=== PATIENT | male | born 1995 | race African-American/Black ===

== ENCOUNTER 2017-04-24 01:20 | Inpatient (IN) | payer MEDICAID, OTHER ==
[~2017-04-24] VITALS: Ht 193 cm; Wt 102.1 kg
[2017-04-24] MEDS ORDERED: LITH300T3 PO (01:25)
[2017-04-24] MEDS ORDERED: TRAZ-147 PO (01:25)
[2017-04-24 02:06] LABS: BASOPHILS % (AUTO) 0.7 % (0.0-2.0); EOSINOPHILS % (AUTO) 4.2 % (1.0-6.0); HEMOGLOBIN 15.5 g/dL (13.5-17.5); LYMPHOCYTES # (AUTO) 2.8 K/uL (1.0-4.8); LYMPHOCYTES % (AUTO) 43.1 % (22.0-44.0); MEAN CORPUSCULAR HEMOGLOBIN 30.7 pg (26.0-34.0); MEAN CORPUSCULAR HGB CONC 33.7 G/dL (31.0-37.0); MEAN CORPUSCULAR VOLUME 91 fL (80-100); MONOCYTES # (AUTO) 0.5 K/uL (0.1-1.0); MONOCYTES % (AUTO) 8.1 % (2.0-9.0); NEUTROPHILS # (AUTO) 2.9 K/uL (1.8-7.7); NEUTROPHILS % (AUTO) 43.9 % (40.0-70.0); PLATELET COUNT (AUTO) 247 K/uL (150-450); RED BLOOD CELL COUNT(AUTO) 5.06 MIL/uL (4.50-5.90); RED CELL DISTRIBUTION WIDTH 13.6 % (11.5-14.5); WHITE BLOOD COUNT (AUTO) 6.6 K/uL (4.5-11.0)
[2017-04-24 02:11] LABS: ANION GAP 8 mmol/L (8-16); CALCIUM, TOTAL 8.9 mg/dL (8.8-10.5); CARBON DIOXIDE 29 mmol/L (22-29); CHLORIDE 103 mmol/L (98-107); CREATININE 1.36 mg/dL (0.60-1.30); GLOMERULAR FILTR. RATE CALC > 60 mL/min (>60); POTASSIUM 3.9 mmol/L (3.5-5.1); SODIUM SERUM 140 mmol/L (136-145); UREA NITROGEN, BLOOD 15 mg/dL (7-18)
[2017-04-24 02:24] LABS: ALANINE AMINOTRANSFERASE 30 U/L (12-78); ALBUMIN 4.2 g/dL (3.4-5.0); ASPARTATE AMINOTRANSFERASE 37 U/L (15-37); BILIRUBIN,TOTAL 0.2 mg/dL (0.1-1.0)
[2017-04-24] MEDS ORDERED: DiphenhydrAMINE HCL 50 MG/ML VIAL IM ONE (02:45)
[2017-04-24] MEDS ORDERED: HALOPERIDOL LACTATE 5 MG/ML VIAL IM ONE (02:45)
[2017-04-24] MEDS ORDERED: LORazepam 2 MG/ML VIAL IM ONE (02:45)
[2017-04-24] MEDS ORDERED: OLANZapine 5 MG TABLET PO ONE (03:00)
[2017-04-24 12:23] VITALS: BP 136/74
[2017-04-24] MEDS ORDERED: HALOPERIDOL 5 MG TABLET PO PRN (14:30)
[2017-04-24 16:43] VITALS: BP 129/73
[2017-04-24 18:00] VITALS: BP 117/85
[2017-04-24] MEDS: LORazepam 2 MG TABLET PO PRN (18:11)
[2017-04-24 20:00] VITALS: BP 127/66
[2017-04-24] MEDS: TraZODone HCL 100 MG TABLET PO SCH (20:36)
[2017-04-24] MEDS: LITHIUM CARBONATE 300 MG CAPSULE PO SCH (20:36)
[2017-04-24] MEDS: ZOLPIDEM TARTRATE 10 MG TABLET PO PRN (20:36)
[2017-04-25] VITALS (7 sets, daily range): BP systolic 114–124; BP diastolic 70–76
[2017-04-25] MEDS ORDERED: BACITRACIN 28.4 GM OINTMENT TP PRN (08:00)
[2017-04-25] MEDS ORDERED: ALBUTEROL SULFATE HFA 90 MCG/PUFF 8 GM INHALER IH PRN (08:00)
[2017-04-25] MEDS ORDERED: CloNIDine HCL 0.1 MG TABLET PO PRN (08:00)
[2017-04-25] MEDS ORDERED: LOPERAMIDE HCL 2 MG CAPSULE PO PRN (08:00)
[2017-04-25] MEDS ORDERED: MAG HYDROX/AL HYDROX/SIMETH ES 30 ML SUSPENSION UDCUP PO PRN (08:00)
[2017-04-25] MEDS ORDERED: BENZOCAINE/MENTHOL LOZENGE MM PRN (08:00)
[2017-04-25] MEDS ORDERED: IBUPROFEN 600 MG TABLET PO PRN (08:00)
[2017-04-25] MEDS ORDERED: ONDANSETRON HCL 4 MG TABLET PO PRN (08:00)
[2017-04-25] MEDS ORDERED: MAGNESIUM HYDROXIDE SUSPENSION 30 ML UDCUP PO PRN (08:00)
[2017-04-25] MEDS ORDERED: PETROLATUM,WHITE 71 GM JELLY TP PRN (08:00)
[2017-04-25 08:16] LABS: HEMATOCRIT 45.5 % (41-53); HEMOGLOBIN 15.4 g/dL (13.5-17.5); LYMPHOCYTES # (AUTO) 1.7 K/uL (1.0-4.8); LYMPHOCYTES % (AUTO) 37.6 % (22.0-44.0); MEAN CORPUSCULAR HEMOGLOBIN 30.7 pg (26.0-34.0); MEAN CORPUSCULAR HGB CONC 33.9 G/dL (31.0-37.0); MEAN CORPUSCULAR VOLUME 90 fL (80-100); MONOCYTES # (AUTO) 0.4 K/uL (0.1-1.0); MONOCYTES % (AUTO) 9.2 % (2.0-9.0); NEUTROPHILS # (AUTO) 2.1 K/uL (1.8-7.7); NEUTROPHILS % (AUTO) 46.2 % (40.0-70.0); PLATELET COUNT (AUTO) 228 K/uL (150-450); RED BLOOD CELL COUNT(AUTO) 5.03 MIL/uL (4.50-5.90); RED CELL DISTRIBUTION WIDTH 13.6 % (11.5-14.5); WHITE BLOOD COUNT (AUTO) 4.7 K/uL (4.5-11.0)
[2017-04-25 08:27] LABS: LITHIUM 0.51 mmol/L (0.60-1.20)
[2017-04-25 08:44] LABS: ALANINE AMINOTRANSFERASE 33 U/L (12-78); ANION GAP 7 mmol/L (8-16); ASPARTATE AMINOTRANSFERASE 45 U/L (15-37); BILIRUBIN,TOTAL 1.3 mg/dL (0.1-1.0); CALCIUM, TOTAL 9.3 mg/dL (8.8-10.5); CARBON DIOXIDE 30 mmol/L (22-29); CHLORIDE 101 mmol/L (98-107); CREATININE 1.43 mg/dL (0.60-1.30); GLOMERULAR FILTR. RATE CALC > 60 mL/min (>60); POTASSIUM 3.9 mmol/L (3.5-5.1); SODIUM SERUM 138 mmol/L (136-145); THYROID STIMULATING HORMONE 3.32 uIU/mL (0.36-3.74); TOTAL PROTEIN, SERUM 7.7 g/dL (6.4-8.2); UREA NITROGEN, BLOOD 17 mg/dL (7-18)
[2017-04-25] MEDS: LORazepam 2 MG TABLET PO PRN (19:31)
[2017-04-25] MEDS: LITHIUM CARBONATE 300 MG CAPSULE PO SCH (20:05)
[2017-04-25] MEDS: TraZODone HCL 100 MG TABLET PO SCH (20:05)
[2017-04-26 07:21] VITALS: BP 140/62
[2017-04-26 07:26] VITALS: BP 140/62
[2017-04-26 08:40] VITALS: BP 140/83
[2017-04-26 16:16] VITALS: BP 123/90
[2017-04-26] MEDS: LORazepam 2 MG TABLET PO PRN (17:21)
[2017-04-26] MEDS: ZOLPIDEM TARTRATE 10 MG TABLET PO PRN (21:02)
[2017-04-26] MEDS: TraZODone HCL 100 MG TABLET PO SCH (21:02)
[2017-04-26] MEDS: LITHIUM CARBONATE 300 MG CAPSULE PO SCH (21:02)
[2017-04-27 06:12] VITALS: BP 132/60
[2017-04-27] MEDS: LORazepam 2 MG TABLET PO PRN ×2 (09:19→20:04)
[2017-04-27] MEDS: ACETAMINOPHEN 325 MG TABLET PO PRN (09:19)
[2017-04-27 09:20] VITALS: BP 121/77
[2017-04-27 16:00] VITALS: BP 118/72
[2017-04-27] MEDS: TraZODone HCL 100 MG TABLET PO SCH (20:04)
[2017-04-27] MEDS: LITHIUM CARBONATE 300 MG CAPSULE PO SCH (20:04)
[2017-04-28 06:37] VITALS: BP 122/63
[2017-04-28 08:22] VITALS: BP 115/70
[2017-04-28] MEDS: LORazepam 2 MG TABLET PO PRN ×2 (10:01→17:31)
[2017-04-28 16:00] VITALS: BP 129/85
[2017-04-28] MEDS: LITHIUM CARBONATE 300 MG CAPSULE PO SCH (20:46)
[2017-04-28] MEDS: TraZODone HCL 100 MG TABLET PO SCH (20:46)
[2017-04-28] MEDS: ZOLPIDEM TARTRATE 10 MG TABLET PO PRN (20:47)
[2017-04-29 07:06] VITALS: BP 124/82
[2017-04-29] MEDS ORDERED: LITH300C3 PO (07:47)
[2017-04-29 08:15] VITALS: BP 129/79
[2017-04-29] MEDS: ACETAMINOPHEN 325 MG TABLET PO PRN (13:10)
== END 2017-04-29 13:20 | disposition home or self-care (01) | DRG 750 ==
LOC: EMS 01:21 → AHU 11:14 → B3A 17:21
PROVIDERS: ADMIT Psychiatry & Neurology Psychiatry; ATTEND Psychiatry & Neurology Psychiatry
DX: F20.0 Paranoid schizophrenia (principal); R45.851 Suicidal ideations; F32.9 Major depressive disorder, single episode, unspecified; G47.00 Insomnia, unspecified; Z90.49 Acquired absence of other specified parts of digestive tract; F17.200 Nicotine dependence, unspecified, uncomplicated; F12.90 Cannabis use, unspecified, uncomplicated; Z72.89 Other problems related to lifestyle; Z71.6 Tobacco abuse counseling; Z56.0 Unemployment, unspecified; Z71.41 Alcohol abuse counseling and surveillance of alcoholic
CPT/HCPCS: 84443; 96372; 99285; G0480; J1200; J1630; J2060

== ENCOUNTER 2017-06-29 14:58 | Inpatient (IN) | payer MEDICAID, OTHER ==
[~2017-06-29] VITALS: Ht 193 cm; Wt 90.5 kg
[~2017-06-29 14:58] MED LIST: LITH300C3 PO; TRAZ-147 PO
[2017-06-29] MEDS ORDERED: HALOPERIDOL LACTATE 5 MG/ML VIAL IM ONE (16:00)
[2017-06-29] MEDS ORDERED: DiphenhydrAMINE HCL 50 MG/ML VIAL IM ONE (16:00)
[2017-06-29] MEDS ORDERED: LORazepam 2 MG/ML VIAL IM ONE (16:00)
[2017-06-29 18:24] LABS: BASOPHILS % (AUTO) 1.3 % (0.0-2.0); EOSINOPHILS % (AUTO) 1.9 % (1.0-6.0); HEMOGLOBIN 15.2 g/dL (13.5-17.5); LYMPHOCYTES # (AUTO) 1.6 K/uL (1.0-4.8); LYMPHOCYTES % (AUTO) 39.1 % (22.0-44.0); MEAN CORPUSCULAR HEMOGLOBIN 30.1 pg (26.0-34.0); MEAN CORPUSCULAR HGB CONC 33.7 G/dL (31.0-37.0); MEAN CORPUSCULAR VOLUME 89 fL (80-100); MONOCYTES # (AUTO) 0.6 K/uL (0.1-1.0); MONOCYTES % (AUTO) 13.8 % (2.0-9.0); NEUTROPHILS # (AUTO) 1.8 K/uL (1.8-7.7); NEUTROPHILS % (AUTO) 43.9 % (40.0-70.0); PLATELET COUNT (AUTO) 205 K/uL (150-450); RED BLOOD CELL COUNT(AUTO) 5.04 MIL/uL (4.50-5.90); RED CELL DISTRIBUTION WIDTH 13.5 % (11.5-14.5)
[2017-06-29 18:36] LABS: ANION GAP 10 mmol/L (8-16); CALCIUM, TOTAL 9.1 mg/dL (8.8-10.5); CARBON DIOXIDE 26 mmol/L (22-29); CHLORIDE 103 mmol/L (98-107); CREATININE 1.17 mg/dL (0.60-1.30); GLOMERULAR FILTR. RATE CALC > 60 mL/min (>60); GLUCOSE,RANDOM 89 mg/dL (70-110); POTASSIUM 3.9 mmol/L (3.5-5.1); SODIUM SERUM 139 mmol/L (136-145); UREA NITROGEN, BLOOD 13 mg/dL (7-18)
[2017-06-29 18:42] LABS: ALANINE AMINOTRANSFERASE 23 U/L (12-78); ALBUMIN 4.4 g/dL (3.4-5.0); ALKALINE PHOSPHATASE 87 U/L (46-116); ASPARTATE AMINOTRANSFERASE 26 U/L (15-37); BILIRUBIN,TOTAL 0.8 mg/dL (0.1-1.0); TOTAL PROTEIN, SERUM 7.8 g/dL (6.4-8.2)
[2017-06-29] MEDS ORDERED: LORazepam 2 MG TABLET PO PRN (19:00)
[2017-06-29] MEDS ORDERED: OLANZapine 5 MG RAPDIS TABLET PO PRN (19:00)
[2017-06-29] MEDS ORDERED: ZOLPIDEM TARTRATE 10 MG TABLET PO PRN (19:00)
[2017-06-29 19:02] LABS: LITHIUM < 0.20 mmol/L (0.60-1.20)
[2017-06-29] MEDS: OLANZapine 7.5 MG TABLET PO SCH (21:12)
[2017-06-29] MEDS: TraZODone HCL 100 MG TABLET PO SCH (21:12)
[2017-06-29] MEDS: LITHIUM CARBONATE 300 MG CAPSULE PO SCH (21:12)
[2017-06-30 04:43] LABS: CHOL/HDL RATIO 2.6 (4.2-7.3); CHOLESTEROL 162 mg/dL (131-200); HDL CHOLESTEROL 63 mg/dL (40-60); LDL CHOL (CALC.) 93 mg/dL (0-130); TRIGLYCERIDES 31 mg/dL (15-150)
[2017-06-30] MEDS ORDERED: PROMETHAZINE HCL 25 MG TABLET PO PRN (14:15)
[2017-06-30] MEDS ORDERED: HydrOXYzine PAMOATE 50 MG CAPSULE PO PRN (14:15)
[2017-06-30] MEDS ORDERED: LOPERAMIDE HCL 2 MG CAPSULE PO PRN (14:15)
[2017-06-30] MEDS ORDERED: MAG HYDROX/AL HYDROX/SIMETH ES 30 ML SUSPENSION UDCUP PO PRN (14:15)
[2017-06-30] MEDS ORDERED: MAGNESIUM HYDROXIDE SUSPENSION 30 ML UDCUP PO PRN (14:15)
[2017-06-30] MEDS ORDERED: TUBERCULIN, PURIFIED PROTEIN DERIVATIVE 5 TU/0.1 ML SYG ID ONE (14:15)
[2017-06-30] MEDS ORDERED: ACETAMINOPHEN 325 MG TABLET PO PRN (14:15)
[2017-06-30] MEDS ORDERED: GuaiFENesin/D-METHORPHAN [SUGAR-FREE] 200-20MG/10 ML SYRUP UDCUP PO PRN (14:15)
[2017-06-30] MEDS ORDERED: DiphenhydrAMINE HCL 50 MG/ML VIAL ONE (15:49)
[2017-06-30] MEDS ORDERED: HALOPERIDOL LACTATE 5 MG/ML VIAL ONE (15:49)
[2017-06-30] MEDS ORDERED: LORazepam 2 MG/ML VIAL ONE (15:49)
[2017-06-30] MEDS ORDERED: DiphenhydrAMINE HCL 50 MG/ML VIAL IM ONE (16:00)
[2017-06-30] MEDS ORDERED: LORazepam 2 MG/ML VIAL IM ONE (16:00)
[2017-06-30] MEDS ORDERED: HALOPERIDOL LACTATE 5 MG/ML VIAL IM ONE (16:00)
[2017-06-30 16:10] VITALS: BP 145/89
[2017-06-30] MEDS: THIAMINE HCL 100 MG TABLET PO SCH (17:11)
[2017-06-30] MEDS: TraZODone HCL 100 MG TABLET PO SCH (20:47)
[2017-06-30] MEDS: LITHIUM CARBONATE 300 MG CAPSULE PO SCH (20:47)
[2017-06-30] MEDS: OLANZapine 7.5 MG TABLET PO SCH (20:47)
[2017-07-01 08:22] VITALS: BP 126/78
[2017-07-01] MEDS: FOLIC ACID 1 MG TABLET PO SCH (09:00)
[2017-07-01] MEDS: MULTIVITAMINS WITH MINERALS, THERAPEUTIC TABLET PO SCH (09:00)
[2017-07-01] MEDS: NALTREXONE HCL 50 MG TABLET PO SCH (09:00)
[2017-07-01] MEDS: THIAMINE HCL 100 MG TABLET PO SCH ×2 (09:00→17:04)
[2017-07-01] MEDS ORDERED: LITH300C3 PO (17:27)
[2017-07-01] MEDS ORDERED: OLAN7.5T9 PO (17:27)
[2017-07-01] MEDS ORDERED: NALT50TA PO (17:27)
[2017-07-01] MEDS ORDERED: TRAZ-147 PO (17:27)
[2017-07-01] MEDS: LITHIUM CARBONATE 300 MG CAPSULE PO SCH (20:55)
[2017-07-01] MEDS: TraZODone HCL 100 MG TABLET PO SCH (20:55)
[2017-07-01] MEDS ORDERED: OLANZapine 10 MG TABLET PO SCH (21:00)
[2017-07-02] MEDS: THIAMINE HCL 100 MG TABLET PO SCH (09:00)
[2017-07-02] MEDS: FOLIC ACID 1 MG TABLET PO SCH (09:00)
[2017-07-02] MEDS: NALTREXONE HCL 50 MG TABLET PO SCH (09:00)
[2017-07-02] MEDS: MULTIVITAMINS WITH MINERALS, THERAPEUTIC TABLET PO SCH (09:00)
== END 2017-07-02 13:20 | disposition home or self-care (01) | DRG 750 ==
LOC: EMS 14:59 → B3A 06-30 13:11
PROVIDERS: ADMIT Psychiatry & Neurology Psychiatry; ATTEND Psychiatry & Neurology Psychiatry
DX: F20.0 Paranoid schizophrenia (principal); Z91.14 Patient's other noncompliance with medication regimen; F31.9 Bipolar disorder, unspecified; F17.200 Nicotine dependence, unspecified, uncomplicated; Z91.041 Radiographic dye allergy status; Z90.49 Acquired absence of other specified parts of digestive tract
CPT/HCPCS: 87081; 96372; 99285; G0480; J1200; J1630; J2060

== ENCOUNTER 2023-08-23 21:32 | Inpatient (IN) | payer MEDICAID ==
[~2023-08-23] VITALS: Ht 193 cm; Wt 97.7 kg
[~2023-08-23 21:32] MED LIST changes: +NALT50TA PO; +OLAN7.5T18 PO; -TRAZ-147 PO; +TRAZ-257 PO
[2023-08-23] MEDS: LORazepam 2 MG/ML VIAL IM ONE (22:39)
[2023-08-23] MEDS: HALOPERIDOL LACTATE 5 MG/ML VIAL IM ONE (22:39)
[2023-08-23] MEDS: DiphenhydrAMINE HCL 50 MG/ML VIAL IM ONE (22:40)
[2023-08-23 22:44] LABS: COVID AG,FIA SOURCE NASAL SWAB
[2023-08-23] MEDS ORDERED: HALOPERIDOL 5 MG TABLET PO PRN (22:45)
[2023-08-23] MEDS ORDERED: ZOLPIDEM TARTRATE 10 MG TABLET PO PRN (22:45)
[2023-08-23] MEDS ORDERED: LORazepam 2 MG TABLET PO PRN (22:45)
[2023-08-23 22:59] LABS: SARS-COV2 (COVID) ANTIGEN,FIA Negative (Negative)
[2023-08-23 23:27] LABS: BASOPHILS % (AUTO) 1.2 % (0.0-2.0); EOSINOPHILS % (AUTO) 2.9 % (1.0-6.0); HEMATOCRIT 40.5 % (41-53); HEMOGLOBIN 13.6 g/dL (13.5-17.5); LYMPHOCYTES # (AUTO) 1.3 K/uL (1.0-4.8); MEAN CORPUSCULAR HGB CONC 33.5 G/dL (31.0-37.0); MEAN CORPUSCULAR VOLUME 90 fL (80-100); MONOCYTES # (AUTO) 0.5 K/uL (0.1-1.0); MONOCYTES % (AUTO) 14.8 % (2.0-9.0); NEUTROPHILS # (AUTO) 1.6 K/uL (1.8-7.7); NEUTROPHILS % (AUTO) 44.1 % (40.0-70.0); PLATELET COUNT (AUTO) 205 K/uL (150-450); RED BLOOD CELL COUNT(AUTO) 4.52 MIL/uL (4.50-5.90); RED CELL DISTRIBUTION WIDTH 13.9 % (11.5-14.5); WHITE BLOOD COUNT (AUTO) 3.6 K/uL (4.5-11.0)
[2023-08-23 23:39] LABS: ANION GAP 9 mmol/L (8-16); CALCIUM, TOTAL 8.7 mg/dL (8.8-10.5); CARBON DIOXIDE 29 mmol/L (22-29); CHLORIDE 100 mmol/L (98-107); GLOMERULAR FILTR. RATE CALC > 60 mL/min (>60); GLUCOSE,RANDOM 104 mg/dL (70-110); POTASSIUM 3.1 mmol/L (3.5-5.1); SODIUM SERUM 138 mmol/L (136-145); UREA NITROGEN, BLOOD 17 mg/dL (7-18)
[2023-08-23 23:40] LABS: ALCOHOL, BLOOD (SERUM) < 3 mg/dL (0-10)
[2023-08-23] MEDS ORDERED: POTASSIUM CHLORIDE 20 MEQ ER TABLET PO ONE (23:45)
[2023-08-23 23:46] LABS: ALANINE AMINOTRANSFERASE 40 U/L (12-78); ALBUMIN 3.6 g/dL (3.4-5.0); ALKALINE PHOSPHATASE 88 U/L (46-116); ASPARTATE AMINOTRANSFERASE 54 U/L (15-37); BILIRUBIN,TOTAL 0.8 mg/dL (0.1-1.0); TOTAL PROTEIN, SERUM 7.2 g/dL (6.4-8.2)
[2023-08-24 02:13] VITALS: RESP 18
[2023-08-24] MEDS ORDERED: PETROLATUM,WHITE 28 GM JELLY TP PRN (06:15)
[2023-08-24] MEDS ORDERED: NICOTINE 14 MG/24 HOUR PATCH TD PRN (06:15)
[2023-08-24] MEDS ORDERED: DOCUSATE SODIUM 100 MG CAPSULE PO PRN (06:15)
[2023-08-24] MEDS ORDERED: LOPERAMIDE HCL 2 MG CAPSULE PO PRN (06:15)
[2023-08-24] MEDS ORDERED: ONDANSETRON HCL 4 MG TABLET PO PRN (06:15)
[2023-08-24] MEDS ORDERED: CloNIDine HCL 0.1 MG TABLET PO PRN (06:15)
[2023-08-24] MEDS ORDERED: ALBUTEROL SULFATE HFA 90 MCG/PUFF 8 GM INHALER IH PRN (06:15)
[2023-08-24] MEDS ORDERED: MAGNESIUM HYDROXIDE SUSPENSION 30 ML UDCUP PO PRN (06:15)
[2023-08-24] MEDS ORDERED: ACETAMINOPHEN 325 MG TABLET PO PRN (06:15)
[2023-08-24] MEDS ORDERED: IBUPROFEN 400 MG TABLET PO PRN (06:15)
[2023-08-24] MEDS ORDERED: MAG HYDROX/ALUMINUM HYD/SIMETH ES 30 ML SUSPENSION UDCUP PO PRN (06:15)
[2023-08-24] MEDS ORDERED: POTASSIUM CHLORIDE 20 MEQ ER TABLET PO ONE (06:15)
[2023-08-24] MEDS ORDERED: GuaiFENesin/D-METHORPHAN [SUGAR-FREE] 200-20MG/10 ML SYRUP UDCUP PO PRN (06:15)
[2023-08-24] MEDS: POTASSIUM CHLORIDE 20 MEQ ER TABLET PO ONE (08:32)
[2023-08-24 09:05] VITALS: RESP 18
[2023-08-24] MEDS: TraZODone HCL 100 MG TABLET PO SCH (20:48)
[2023-08-24] MEDS: LITHIUM CARBONATE 300 MG CAPSULE PO SCH (21:00)
[2023-08-24] MEDS: OLANZapine 10 MG TABLET PO SCH (21:00)
[2023-08-24 21:52] VITALS: RESP 18
[2023-08-25] MEDS: NALTREXONE HCL 50 MG TABLET PO SCH (08:34)
[2023-08-25 10:27] VITALS: RESP 17; TEMP 98
[2023-08-25 20:18] VITALS: BP 97/64; PULSE 93; RESP 18; TEMP 97.7; O2SAT 97
[2023-08-26 08:16] VITALS: RESP 18
== END 2023-08-26 14:52 | disposition left against medical advice (07) | DRG 754 ==
LOC: EMS 21:33 → 3EC 23:14
PROVIDERS: ADMIT Psychiatry & Neurology Child & Adolescent Psychiatry; ATTEND Psychiatry & Neurology Child & Adolescent Psychiatry
DX: F32.A Depression, unspecified (principal); R45.851 Suicidal ideations; F20.9 Schizophrenia, unspecified; E87.6 Hypokalemia; G47.00 Insomnia, unspecified; D72.819 Decreased white blood cell count, unspecified; Z20.822 Contact with and (suspected) exposure to COVID-19; Z53.29 Procedure and treatment not carried out because of patient's decision for other reasons; Z90.49 Acquired absence of other specified parts of digestive tract; Z59.00 Homelessness unspecified
CPT/HCPCS: 80053; 85025; 99285; G0480; J1200; J1630; J2060